=== PATIENT | male | born 1970 | race Caucasian/White ===

== ENCOUNTER 2019-09-18 08:49 | Emergency (ER) | payer OTHER ==
[~2019-09-18] VITALS: Ht 175.3 cm; Wt 95.3 kg
[~2019-09-18 08:49] MED LIST: ORPH100T PO; TENCON CAPSULE1 CAP; TRAMADOL HCL-AP1 TAB PO
== END 2019-09-18 13:27 | disposition home or self-care (01) ==
LOC: ER 08:49
DX: K57.92 Diverticulitis of intestine, part unspecified, without perforation or abscess without bleeding (principal)

== ENCOUNTER 2021-06-26 11:39 | Emergency (ER) | payer OTHER ==
[~2021-06-26] VITALS: Ht 175.3 cm; Wt 95.3 kg
[2021-06-26] MEDS ORDERED: ZESTRIL20 MG (12:07)
== END 2021-06-26 16:14 | disposition home or self-care (01) ==
LOC: ER 11:39
DX: R10.30 Lower abdominal pain, unspecified (principal)

== ENCOUNTER 2022-03-30 22:48 | Emergency (ER) | payer OTHER ==
[~2022-03-30] VITALS: Ht 175.3 cm; Wt 99.8 kg
[~2022-03-30 22:48] MED LIST changes: +ZESTRIL20 MG
[2022-03-31] MEDS ORDERED: LEVSIN/SL0.125 MG SL (05:10)
[2022-03-31] MEDS ORDERED: CIPRO500 MG PO (05:10)
[2022-03-31] MEDS ORDERED: METRONIDAZOLE500 MG PO (05:10)
== END 2022-03-31 05:23 ==
LOC: ER 22:48
DX: K57.92 Diverticulitis of intestine, part unspecified, without perforation or abscess without bleeding (principal); K59.00 Constipation, unspecified; I10 Essential (primary) hypertension; Z88.8 Allergy status to other drugs, medicaments and biological substances

== ENCOUNTER 2023-10-17 19:10 | Emergency (ER) | payer OTHER ==
[~2023-10-17] VITALS: Ht 175.3 cm; Wt 102.1 kg
[~2023-10-17 19:10] MED LIST changes: +CIPRO500 MG PO; +LEVSIN/SL0.125 MG SL; +METRONIDAZOLE500 MG PO
[2023-10-17 20:56] LABS: HEMATOCRIT 41.1 % (39.0-48.0); HEMOGLOBIN 13.6 g/dL (13-16.00); MEAN CELL VOLUME 82.7 fL (80.0-100.00); MEAN CORPUSCULAR HEMOGLOBIN 27.4 pg (27.00-32.0); MEAN CORPUSCULAR HGB CONC 33.1 g/dl (32.0-36.0); PLATELET COUNT 241 K/uL (150-450); RED BLOOD COUNT 4.97 M/uL (4.00-6.00); RED CELL DISTRIBUTION WIDTH 13.9 % (11.5-14.5)
[2023-10-17 21:23] LABS: ALBUMIN 3.4 gm/dL (3.4-5.0); CALCIUM 8.7 mg/dL (8.5-10.1); CREATININE SERUM 1.05 mg/dL (0.70-1.30); GFR 74.46; POTASSIUM 3.91 mEq/L (3.5-5.1); TOTAL PROTEIN 7.4 gm/dL (6.4-8.2)
[2023-10-17] MEDS ORDERED: CIPRO500 MG PO (23:05)
[2023-10-17] MEDS ORDERED: LEVSIN/SL0.125 MG SL (23:05)
[2023-10-17] MEDS ORDERED: METRONIDAZOLE500 MG PO (23:05)
[2023-10-17] MEDS ORDERED: OMEPRAZOLE40 MG PO (23:05)
== END 2023-10-18 00:34 | disposition home or self-care (01) ==
LOC: ER 19:10
PROVIDERS: General Practice
DX: R10.32 Left lower quadrant pain (principal); K57.92 Diverticulitis of intestine, part unspecified, without perforation or abscess without bleeding

== ENCOUNTER 2024-11-24 10:42 | Emergency (ER) | payer OTHER ==
[~2024-11-24] VITALS: Ht 175.3 cm; Wt 102.1 kg
[~2024-11-24 10:42] MED LIST changes: +OMEPRAZOLE40 MG PO
== END 2024-11-24 12:54 | disposition home or self-care (01) ==
LOC: ER 10:45
DX: I80.9 Phlebitis and thrombophlebitis of unspecified site (principal); Z88.6 Allergy status to analgesic agent

== ENCOUNTER 2024-11-27 07:36 | Emergency (ER) | payer OTHER ==
[~2024-11-27] VITALS: Ht 175.3 cm; Wt 102.1 kg
[2024-11-27 07:52] VITALS: BP 128/86; O2SAT 98
== END 2024-11-27 14:07 | disposition home or self-care (01) ==
LOC: ER 07:38
DX: M79.604 Pain in right leg (principal); Z88.6 Allergy status to analgesic agent; I10 Essential (primary) hypertension

== ENCOUNTER → 2025-04-16 | Emergency (ER) | payer OTHER | END | disposition left against medical advice (07) | LOC: ER 16:37 | DX: Z53.21 Procedure and treatment not carried out due to patient leaving prior to being seen by health care provider (principal) ==